=== PATIENT | female | born 1935 | race Caucasian/White ===

== ENCOUNTER 2016-08-20 14:12 | Outpatient (CLI) | payer OTHER ==
[~2016-08-20] VITALS: Ht 154.9 cm; Wt 81.4 kg
[2016-08-20 14:16] VITALS: BP 157/67; PULSE 79; RESP 18; Ht 154.9 cm; Wt 81.4 kg
[2016-08-20] MEDS ORDERED: SYN112 PO (14:37)
[2016-08-20] MEDS ORDERED: SIMV10TA PO (14:37)
[2016-08-20] MEDS ORDERED: HYD25 PO (14:37)
[2016-08-20] MEDS ORDERED: LOSA100T7 PO (14:37)
[2016-08-20] MEDS ORDERED: LANT3I SC (14:37)
[2016-08-20] MEDS ORDERED: ASPI-664 PO (14:38)
--- NOTE | 2016-08-20 14:56 | PN ---
Date/Time of Note Date/Time of Note DATE: 08/20/16 TIME: 14:52 Outpatient Progress Note Chief Complaint Sepsis/pyelonephritis/diabetes/ASHD/hypertension/CHF/hypothyroidism HPI Sepsis/patient was recently admitted with sepsis, patient was in the hospital, patient was started on IV antibiotic, patient stable, no fever or chill, Pyelonephritis/no fever or chill, no blood in the urine, patient had Escherichia coli bacteremia, Diabetes/no polydipsia polyuria hypoglycemia, patient blood sugar slightly elevated, patient was not taking regular insulin 3 times a day, ASHD/no chest pain or PND orthopnea, patient had non-ST [place], CHF/patient has diastolic dysfunction, no PND orthopnea or ankle edema, Hypothyroidism/no puffiness of ice, no constipation, on medication, Review of Systems Const: [No Fever, no chills, no Wt. loss, no Fatigue, normal appetite, no diaphoresis.] Eyes: [No pain, no discharge, no redness, no visual change, no foreign body.] ENT: [No pain, no bleeding, no congestion, no sore throat, no dysphagia, no discharge or rhinitis.] Lymph: [No adenopathy, no tender nodes, no lymphedema.] Resp: [No SOB, no cough, no sputum, no wheezing, no chest pain.] CV: [No chest pain, no palpitaions, no VARGAS, no PND, no edema.] GI: [Normal appetite, no pain, no nausea, no vomiting, no diarrhea, no blood, no constipation.] : [No frequency, no urgency, no dysuria, no hematuria, no flank pain, no discharge, no bleeding.] Musc: [No bone/joint pain, no back pain, no neck pain, no knee pain, no restricted ROM.] Skin: [No rash, no skin lesions, no erythema, no laceration, no bruising, no pruritus.] Neuro: [No KAPLAN, no dizziness, no syncope, no seizure, no focal-weakness.] Endo: [No polyuria, no polydypsia, no dry-skin, no temp-intolerance.] Psych: [No hallucinations, no depression, no anxiety, no suicidal ideation.] Ext: [No edema, no pain, no ulcer, no weakness.] Physical Exam Vital Signs Date Time Temp Pulse Resp B/P Pulse Ox O2 Delivery O2 Flow Rate FiO2 08/20/16 14:16 98.1 79 18 157/67 97 Room Air General Appearance: A [81] year-old [female] [who appears well-developed, well- nourished, in no acute distress.] HEENT: [Head normocephalic, atraumatic. Pupils equal, round, reactive to light and accommodate. Sclerae are no jaundice. Nasal turbinates pink without erythema or nasal discharge. Mucous membranes pink and moist without lesions. Oropharynx clear without any exudate or discharge.] NECK: [Supple. Trachea midline, No thyromegaly, No cervical lymphadenopathy, No mass, No carotid bruits, No JVD, Carotid pulses 2+ bilaterally.] PULMONARY: [Clear to auscultaion bilaterally, No retractions, Chest expansion symmetric bilaterally, no rales, no ronchi, no dulness on percussion.] CARDIAC: [Normal SI and S2, Regular rate and rythm, no murmur, gallop, or rub.] GASTROINTESTINAL: [Abdomen is soft, non-tender, Non Rigid, No distention, Positive bowel sounds x4 quadrants, Liver normal.] SKIN: [Warm, dry, no rash, no bruise, no echmosis.] EXTREMITIES: [Bilateral lower extremities normal, no edema, no phlabitus, pulse palpable, no contracture.] MUSCULOSKELETAL: [Spine Normal, Non-tender, Normal range of motion, No swelling , no deformity, no clubbing, or cyanosis, the patient has no edema to bilateral lower extremities, dorsalis pedis pulses palpable bilaterally.] NEUROLOGIC: [The patient is awake, alert, oriented, responding to yes/no questions appropriately, moving all extremities, cranial nerve intact, normal strenght, normal power, normal coordination, normal gait.] Allergies Coded Allergies: No Known Drug Allergies (Verified Allergy, Unknown, 08/20/16) [facility] Sepsis/bacteremia/pyelonephritis/Escherichia coli bacteremia/non-ST [place]/ASHD/AK I /diabetes/hypertension/chronic diastolic dysfunction/hypothyroidism Social Hx No smoking or drinking, Family Hx Noncontributory Assessment/Plan Impression Sepsis/pyelonephritis/diabetes/ASHD/hypertension/diastolic dysfunction/ hypothyroidism Plan Continue all medication, patient has been getting IV antibiotic, patient remains afebrile, Patient encouraged to follow with the primary care physician, Patient encouraged to follow the diet, patient blood sugar is 200+ all the time, Patient encouraged to take Humalog 10 units before breakfast, monitor blood sugar closely, discussion about hypoglycemia, and potential problem, patient education done, Medications Home Meds Reported Medications Aspirin (Low Dose Aspirin) 81 Mg Tablet.dr, 81 MG PO DAILY, #30 TAB 08/20/16 Simvastatin* (Zocor*) 10 Mg Tablet, 10 MG PO QHS, #30 TAB 08/20/16 Losartan Potassium* (Losartan Potassium*) 100 Mg Tablet, 100 MG PO DAILY, TAB 08/20/16 Hydrochlorothiazide* (Hydrochlorothiazide*) 25 Mg Tab, 25 MG PO DAILY, #30 TAB 08/20/16 Insulin Glargine* (Lantus*) 100 Unit/Ml Soln, 36 UNIT SC QHS, #1 VIAL 08/20/16 Levothyroxine Sodium* (Levothyroxine Sodium*) 112 Mcg Tablet, 112 MCG PO BEFORE BREAKFAST, #30 TAB 08/20/16 MORAIMA CABRERA MD Aug 20, 2016 14:56
== END 2016-08-20 16:25 | disposition home or self-care (01) ==
LOC: DCC 14:12
PROVIDERS: ATTEND Internal Medicine
DX: Z09 Encounter for follow-up examination after completed treatment for conditions other than malignant neoplasm (principal); Z87.440 Personal history of urinary (tract) infections; E11.9 Type 2 diabetes mellitus without complications; I11.0 Hypertensive heart disease with heart failure; I50.30 Unspecified diastolic (congestive) heart failure; E03.9 Hypothyroidism, unspecified; I25.2 Old myocardial infarction; Z79.4 Long term (current) use of insulin
CPT/HCPCS: G0463

== ENCOUNTER 2016-09-03 13:52 | Outpatient (CLI) | payer OTHER ==
[~2016-09-03] VITALS: Ht 154.9 cm; Wt 81.8 kg
[~2016-09-03 13:52] MED LIST: ASPI-664 PO; HYD25 PO; LANT3I SC; LOSA100T7 PO; SIMV10TA PO; SYN112 PO
[2016-09-03 13:58] VITALS: BP 200/74; PULSE 70; RESP 20; Ht 154.9 cm; Wt 81.8 kg
[2016-09-03] MEDS ORDERED: INSU100C SQ (14:28)
--- NOTE | 2016-09-03 15:01 | PN ---
Date/Time of Note Date/Time of Note DATE: 09/03/16 TIME: 14:57 Outpatient Progress Note Chief Complaint Pyelonephritis/diabetes/ASHD/hypertension/hypothyroidism HPI Pyelonephritis/no fever chill, no frequency urgency or burning, no back pain, improved significantly, no symptom at present, Diabetes/no polydipsia polyuria hypoglycemia, patient blood sugar around 12:00 is slightly elevated, other blood sugars are fair, ASHD patient denies any chest pain no PND orthopnea or ankle edema, Hypertension/no headache or dizziness or lightheadedness, today's blood pressure slightly elevated, patient has not taken medication yet, Hypothyroidism/no puffiness of eyes, no constipation, Review of Systems Const: No Fever, no chills, no Wt. loss, no Fatigue, normal appetite, no diaphoresis. Eyes: No pain, no discharge, no redness, no visual change, no foreign body. ENT: No pain, no bleeding, no congestion, no sore throat, no dysphagia, no discharge or rhinitis. Lymph: No adenopathy, no tender nodes, no lymphedema. Resp: No SOB, no cough, no sputum, no wheezing, no chest pain. CV: No chest pain, no palpitaions, no VARGAS, no PND, no edema. GI: Normal appetite, no pain, no nausea, no vomiting, no diarrhea, no blood, no constipation. : No frequency, no urgency, no dysuria, no hematuria, no flank pain, no discharge, no bleeding. Musc: No bone/joint pain, no back pain, no neck pain, no knee pain, no restricted ROM. Skin: No rash, no skin lesions, no erythema, no laceration, no bruising, no pruritus. Neuro: No KAPLAN, no dizziness, no syncope, no seizure, no focal-weakness. Endo: No polyuria, no polydypsia, no dry-skin, no temp-intolerance. Psych: No hallucinations, no depression, no anxiety, no suicidal ideation. Ext: No edema, no pain, no ulcer, no weakness. Physical Exam Vital Signs Date Time Temp Pulse Resp B/P Pulse Ox O2 Delivery O2 Flow Rate FiO2 09/03/16 13:58 98.2 70 20 200/74 96 Room Air General Appearance: A 81 year-old female who appears well-developed, well- nourished, in no acute distress. HEENT: Head normocephalic, atraumatic. Pupils equal, round, reactive to light and accommodate. Sclerae are no jaundice. Nasal turbinates pink without erythema or nasal discharge. Mucous membranes pink and moist without lesions. Oropharynx clear without any exudate or discharge. NECK: Supple. Trachea midline, No thyromegaly, No cervical lymphadenopathy, No mass, No carotid bruits, No JVD, Carotid pulses 2+ bilaterally. PULMONARY: Clear to auscultaion bilaterally, No retractions, Chest expansion symmetric bilaterally, no rales, no ronchi, no dulness on percussion. CARDIAC: Normal SI and S2, Regular rate and rythm, no murmur, gallop, or rub. GASTROINTESTINAL: Abdomen is soft, non-tender, Non Rigid, No distention, Positive bowel sounds x4 quadrants, Liver normal. SKIN: Warm, dry, no rash, no bruise, no echmosis. EXTREMITIES: Bilateral lower extremities normal, no edema, no phlabitus, pulse palpable, no contracture. MUSCULOSKELETAL: Spine Normal, Non-tender, Normal range of motion, No swelling, no deformity, no clubbing, or cyanosis, the patient has no edema to bilateral lower extremities, dorsalis pedis pulses palpable bilaterally. NEUROLOGIC: The patient is awake, alert, oriented, responding to yes/no questions appropriately, moving all extremities, cranial nerve intact, normal strenght, normal power, normal coordination, normal gait. Allergies Coded Allergies: No Known Drug Allergies (Verified Allergy, Unknown, 08/20/16) PMH Diabetes/hypertension/high hypothyroidism history of CHF, history of's sepsis,/ pyelonephritis/ Social Hx No change, Family Hx No change, Assessment/Plan Impression Pyelonephritis resolved/diabetes/ASHD/hypertension/hypothyroidism Plan Patient has all the medication, except insulin, will refill insulin, patient to go home and take medication, if blood pressure remains elevated to call us, may need to add another medication, Control of blood sugar, control the calorie, increase activity, discussed with the patient, Patient to follow with the primary care physician, Patient encouraged to see the physician in couple of weeks, and sooner if the blood pressure remains elevated, Medications Home Meds Reported Medications Insulin Lispro (Humalog) 100 Unit/1 Ml Cartridge, 10 UNIT SQ AC BREAKFAST 09/03/16 Aspirin (Low Dose Aspirin) 81 Mg Tablet.dr, 81 MG PO DAILY, #30 TAB 08/20/16 Simvastatin* (Zocor*) 10 Mg Tablet, 10 MG PO QHS, #30 TAB 08/20/16 Losartan Potassium* (Losartan Potassium*) 100 Mg Tablet, 100 MG PO DAILY, TAB 08/20/16 Hydrochlorothiazide* (Hydrochlorothiazide*) 25 Mg Tab, 25 MG PO DAILY, #30 TAB 08/20/16 Insulin Glargine* (Lantus*) 100 Unit/Ml Soln, 36 UNIT SC QHS, #1 VIAL 08/20/16 Levothyroxine Sodium* (Levothyroxine Sodium*) 112 Mcg Tablet, 112 MCG PO BEFORE BREAKFAST, #30 TAB 08/20/16 MORAIMA CABRERA MD September 03, 2016 15:01
== END 2016-09-03 16:31 | disposition home or self-care (01) ==
LOC: DCC 13:52
PROVIDERS: ATTEND Internal Medicine
DX: N12 Tubulo-interstitial nephritis, not specified as acute or chronic (principal); I10 Essential (primary) hypertension; E11.9 Type 2 diabetes mellitus without complications; E03.9 Hypothyroidism, unspecified; I25.10 Atherosclerotic heart disease of native coronary artery without angina pectoris
CPT/HCPCS: 82962; G0463

== ENCOUNTER 2016-12-03 05:33 | Day surgery (SDC) | payer OTHER ==
[2016-12-03] VITALS (7 sets, daily range): BP systolic 93–130; BP diastolic 34–65; PULSE 62–88; RESP 14–20; Ht 152.4 cm; Wt 82.3 kg
[~2016-12-03] VITALS: Ht 152.4 cm; Wt 82.3 kg
[~2016-12-03 05:33] MED LIST changes: +INSU100C SQ
[2016-12-03] MEDS ORDERED: CYCLOPENTOLATE/PHENYLEPH 2 ML OPH RIGHT EYE SCH (06:00)
[2016-12-03] MEDS ORDERED: TROPICAMIDE 1% 2 ML OPH RIGHT EYE SCH (06:00)
[2016-12-03] MEDS ORDERED: CIPROFLOXACIN 0.3% 2.5 ML OPH RIGHT EYE SCH (06:00)
[2016-12-03] MEDS ORDERED: DICLOFENAC 0.1% 2.5 ML OPH RIGHT EYE SCH (06:00)
[2016-12-03] MEDS ORDERED: DEXAMETHASONE 4 MG/ML 1 ML INJ ONE (06:26)
[2016-12-03] MEDS ORDERED: HYALURONATE/CHONDROITIN 1ML OPH INJ ONE (06:26)
[2016-12-03] MEDS ORDERED: EPINEPHrine 1 MG INJ ONE (06:26)
[2016-12-03] MEDS ORDERED: LIDOCAINE 4% (MPF) 5 ML INJ ONE (06:26)
[2016-12-03] MEDS ORDERED: CARBACHOL 0.01% 1.5 ML OPH INJ ONE (06:26)
[2016-12-03] MEDS ORDERED: GENTAMICIN 80 MG INJ ONE (06:26)
[2016-12-03] MEDS ORDERED: CEFAZOLIN 1 GM INJ ONE (06:26)
[2016-12-03] MEDS ORDERED: ATOR20TA38 PO (06:56)
[2016-12-03] MEDS ORDERED: AMLO-147 PO (06:56)
[2016-12-03] MEDS ORDERED: FENTAnyl 50 MCG/ML VIAL ONE (06:58)
[2016-12-03] MEDS ORDERED: PROPOFOL 20 ML ONE (06:58)
[2016-12-03] MEDS ORDERED: LIDOCAINE 1% (MDV) 20 ML INJ ONE (06:59)
[2016-12-03] MEDS ORDERED: ASPI-664 PO (07:00)
[2016-12-03] MEDS ORDERED: DEXAMETHASONE 4 MG/ML 1 ML INJ INJ ONE (07:07)
[2016-12-03] MEDS ORDERED: HYALURONATE/CHONDROITIN 1ML OPH INJ IO ONE (07:07)
[2016-12-03] MEDS ORDERED: CEFAZOLIN 1 GM INJ INJ ONE (07:07)
[2016-12-03] MEDS ORDERED: CARBACHOL 0.01% 1.5 ML OPH INJ RIGHT EYE ONE (07:07)
--- NOTE | 2016-12-03 07:58 | OPR ---
Date/Time of Note Date/Time of Note DATE: 12/03/16 TIME: 07:57 Operative Report Preoperative Diagnosis cataract od Postoperative Diagnosis same Operation/Procedure Performed cataract surgery od Surgeon: NITISH HAMM MD Anesthesia Type: MAC Estimated Blood Loss: none Transfusion Required: no Specimen: none Complications: no NITISH HAMM MD Dec 03, 2016 07:58
--- NOTE | 2016-12-03 08:45 | OPR ---
DATE OF OPERATION: 12/03/2016 PREOPERATIVE DIAGNOSIS: Cataract, right eye. POSTOPERATIVE DIAGNOSIS: Cataract, right eye. OPERATION PERFORMED: Cataract extraction with lens implant, right eye. SURGEON: Luis Nash MD ANESTHESIOLOGIST: Yohannes Haskins CRNA ANESTHESIA: Local standby. PROCEDURE: The patient was brought to the operating room and placed on the table with an IV in place and the patient attached to an rotoprinter. Oxygen was given via face mask. After some intravenous sedation was administered, local anesthesia was given using Xylocaine 2% with epinephrine, mixed with Marcaine 0.5%. This was given in a lid block and retrobulbar injection. The patient was then prepped and draped in the usual sterile manner. A wire lid speculum was inserted between the lids of the right eye. A Superblade was used to enter the anterior chamber at the corneoscleral limbus at the 10:30 o'clock position. A separate incision was made using a 3.0-mm keratome which entered the corneoscleral junction at the 12 o'clock position. Through this 3- mm opening, an irrigating cystotome was introduced into the anterior chamber. The chamber was filled with Viscoat and an anterior capsulotomy was performed. Balanced salt solution was then used for hydrodissection of the lens. A phacoemulsification handpiece was then brought into the field and introduced into the anterior chamber. The lens nucleus was emulsified using a deep groove and cracking the nucleus into quadrants. Following this, each quadrant was aspirated and emulsified at the pupillary margin. After this was completed, the irrigation/aspiration handpiece was brought to the field, introduced into the posterior chamber, and the lens cortical material was removed. When this was completed, additional Viscoat was injected into the anterior and posterior chambers. The 3-mm opening had its internal lips enlarged, and then the posterior chamber intraocular lens measuring 22.5 diopters ([employer], model LI61AO) was then injected into the posterior chamber using the lens injector system. After the leading haptic was introduced into the capsular bag and the lens optic was present in the center of the eye, the injector was removed and the trailing haptic was grasped with non-toothed forceps and introduced into the capsular fold superiorly. A Sinskey hook was then used to rotate the intraocular lens so that the lips were oriented in the horizontal meridian. One 10-0 nylon suture was placed across the wound. Prior to tying, the irrigation/aspiration handpiece was reintroduced into the anterior chamber to remove the Viscoat. Miochol was instilled to constrict the pupil, and then the 10-0 nylon suture was tied. The ends were cut short and then the knot was buried. Then, 0.5 mL of dexamethasone and 0.5 mL of Ancef were injected into the sub-Tenon space in the inferior fornix. Ciloxan drops were then placed on the surface of the eye. The speculum was removed and a patch was applied. The patient then left the operating room in satisfactory condition. Dictated By: Luis Nash MD /jenny/jena /Document#: [id number]
== END 2016-12-03 08:54 | disposition home or self-care (01) ==
LOC: SDS 05:33
PROVIDERS: ATTEND Ophthalmology
DX: H26.9 Unspecified cataract (principal); I10 Essential (primary) hypertension; E11.9 Type 2 diabetes mellitus without complications
CPT/HCPCS: 66984; 82962; J0171; J0690; J1100; J1580; J3010; V2632; Z7512; Z7610

== ENCOUNTER 2017-02-25 05:15 | Day surgery (SDC) | payer OTHER ==
[2017-02-25] VITALS (7 sets, daily range): BP systolic 101–161; BP diastolic 60–79; PULSE 67–83; RESP 16–18; Ht 160 cm; Wt 81.3 kg
[~2017-02-25] VITALS: Ht 160 cm; Wt 81.3 kg
[~2017-02-25 05:15] MED LIST changes: +AMLO-147 PO; +ATOR20TA38 PO; -HYD25 PO; +HYDR25TA6 PO; +LEVO112T57 PO; -SIMV10TA PO; -SYN112 PO
[2017-02-25] MEDS ORDERED: CYCLOPENTOLATE/PHENYLEPH 2 ML OPH OPER SCH (06:00)
[2017-02-25] MEDS ORDERED: MOXIFLOXACIN 0.5% 3 ML OPH OPER SCH (06:00)
[2017-02-25] MEDS ORDERED: BROMFENAC SODIUM 1.7 ML OPH DROP OPER SCH (06:00)
[2017-02-25] MEDS ORDERED: TROPICAMIDE 1% 2 ML OPH OPER SCH (06:00)
[2017-02-25] MEDS ORDERED: SOD CHLORIDE 0.9% 1,000 ML IV SCH (06:00)
--- NOTE | 2017-02-25 06:23 | PREOPHP ---
DATE OF ADMISSION: 02/25/2017 HISTORY OF PRESENT ILLNESS: This 81-year-old patient is admitted for elective cataract surgery of t he left eye. The patient has had progressive deterioration of vision in both eyes and 3 months ago underwent cataract surgery of the right eye with good visual result. The patient denies any other p rior history of eye disease or injury. 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 MEDICATIONS INCLUDE: 1. Insulin. 2. Losartan. 3. Simvastatin. 4. Levothyroxine. 5. Aspirin was discontinued 1 week prior to surgery. ALLERGIES: THERE ARE NO KNOWN ALLERGIES. PHYSICAL EXAMINATION: Visual acuity with best correction is 20/40 in the right eye and 20/80 in the left eye. Slit lamp examination reveals a posterior chamber intraocular lens in appropriate positi on in the right eye and a nuclear sclerotic and posterior subcapsular cataract in the left eye. Rica lanation tonometry is 12 mmHg. Examination of the retina appears to be within normal limits without evidence of diabetic retinopathy. DIAGNOSIS: Cataract, left eye. PLAN: Cataract extraction with lens implant, left eye. The risks and alternatives to the surgery h ave been discussed with the patient as well as the hope for improvement of visual acuity leading to greater ability to perform activities of daily living. The patient understands this and agrees to liana quiñonez with surgery. Dictated By: NITISH MCDOWELL/BLAKE Conf#: [id number] DID#: [id number]
[2017-02-25] MEDS ORDERED: CARBACHOL 0.01% 1.5 ML OPH INJ ONE (06:41)
[2017-02-25] MEDS ORDERED: EPINEPHrine 1 MG INJ ONE (06:41)
[2017-02-25] MEDS ORDERED: DEXAMETHASONE 4 MG/ML 1 ML INJ ONE (06:41)
[2017-02-25] MEDS ORDERED: LIDOCAINE 4% (MPF) 5 ML INJ ONE (06:41)
[2017-02-25] MEDS ORDERED: FLUT9.9S NASAL (06:41)
[2017-02-25] MEDS ORDERED: GENTAMICIN 80 MG INJ ONE (06:41)
[2017-02-25] MEDS ORDERED: CEFAZOLIN 1 GM INJ ONE (06:41)
[2017-02-25] MEDS ORDERED: CEFAZOLIN 1 GM INJ INJ ONE (06:59)
[2017-02-25] MEDS ORDERED: DEXAMETHASONE 4 MG/ML 1 ML INJ INJ ONE (06:59)
[2017-02-25] MEDS ORDERED: CARBACHOL 0.01% 1.5 ML OPH INJ IO ONE (06:59)
[2017-02-25] MEDS ORDERED: EPHEDrine SULFATE 50 MG/5 ML SYG IV PRN (07:30)
[2017-02-25] MEDS ORDERED: DIPHENHYDRAMINE 50 MG INJ IV PRN (07:30)
[2017-02-25] MEDS ORDERED: METOCLOPRAMIDE 10 MG INJ IV PRN (07:30)
[2017-02-25] MEDS ORDERED: ONDANSETRON 4 MG INJ IV PRN (07:30)
[2017-02-25] MEDS ORDERED: MEPERIDINE 25 MG INJ IV PRN (07:30)
[2017-02-25] MEDS ORDERED: LABETALOL HCL 20MG INJ IV PRN (07:30)
[2017-02-25] MEDS ORDERED: OXYCODONE/ACETAMINOPHEN (5/325) TAB PO PRN ×2 (07:30)
[2017-02-25] MEDS ORDERED: FENTAnyl 50 MCG/ML VIAL IV PRN ×3 (07:30)
[2017-02-25] MEDS ORDERED: hydrALAzine 20 MG INJ IV PRN (07:30)
[2017-02-25] MEDS ORDERED: MIDAZOLAM 1 MG/ML 2 ML INJ IV PRN (07:30)
[2017-02-25] MEDS ORDERED: PROPOFOL 20 ML ONE (07:31)
--- NOTE | 2017-02-25 08:05 | SIPON ---
Date/Time of Note Date/Time of Note DATE: 02/25/17 TIME: 08:03 Operative Report Preoperative Diagnosis cataract os Postoperative Diagnosis same Operation/Procedure Performed cataract surgery os Surgeon see signature line litigation assistant none Anesthesia: MAC Estimated blood loss: none Transfusion Required none Specimen none Grafts/Implants posterior chamber lens implant Complications none NITISH HAMM MD Feb 25, 2017 08:05
--- NOTE | 2017-02-25 08:05 | SIPON ---
Date/Time of Note Date/Time of Note DATE: 02/25/17 TIME: 08:03 Operative Report Preoperative Diagnosis cataract os Postoperative Diagnosis same Operation/Procedure Performed cataract surgery os Surgeon see signature line engineer first assistant none Anesthesia: MAC Estimated blood loss: none Transfusion Required none Specimen none Grafts/Implants posterior chamber lens implant Complications none NITISH HAMM MD Feb 25, 2017 08:05
--- NOTE | 2017-02-25 08:05 | SIPON ---
Date/Time of Note Date/Time of Note DATE: 02/25/17 TIME: 08:03 Operative Report Preoperative Diagnosis cataract os Postoperative Diagnosis same Operation/Procedure Performed cataract surgery os Surgeon see signature line geriatric assistant none Anesthesia: MAC Estimated blood loss: none Transfusion Required none Specimen none Grafts/Implants posterior chamber lens implant Complications none NITISH HAMM MD Feb 25, 2017 08:05
--- NOTE | 2017-02-25 09:36 | OPR ---
DATE OF OPERATION: 02/25/2017 PREOPERATIVE DIAGNOSIS: Cataract, left eye. POSTOPERATIVE DIAGNOSIS: Cataract, left eye. OPERATION PERFORMED: Cataract extraction with lens implant, left eye. SURGEON: Nitish Nash MD. ANESTHESIA: Dr. Miramontes. OPERATION: Phacoemulsification with posterior chamber intraocular lens implant, left eye. PROCEDURE: The patient was brought to the operating room and placed on the table with an IV in plac e and the patient attached to an satellite project site monitor. Oxygen was given via face mask. After some intravenous sedation was administered, local anesthesia was given using Xylocaine 2% with epinephrine, mixed with Marcaine 0.5%. This was given in a lid block and retrobulbar injection. The patient was then prepped and draped in the usual sterile manner. A wire lid speculum was inserted between the lids of the left eye. A Superblade was used to enter th e anterior chamber at the corneoscleral limbus at the 10:30 o'clock position. A separate incision wa s made using a 3.0-mm keratome which entered the corneoscleral junction at the 12 o'clock position. Through this 3-mm opening, an irrigating cystotome was introduced into the anterior chamber. The rosmery mber was filled with Viscoat and an anterior capsulotomy was performed. Balanced salt solution was t hen used for hydrodissection of the lens. A phacoemulsification handpiece was then brought into the field and introduced into the anterior chamber. The lens nucleus was emulsified using a deep groove and cracking the nucleus into quadrants. Following this, each quadrant was aspirated and emulsified at the pupillary margin. After this was completed, the irrigation/aspiration handpiece was brought to the field, introduced i nto the posterior chamber, and the lens cortical material was removed. When this was completed, gabriel tional Viscoat was injected into the anterior and posterior chambers. The 3-mm opening had its internal lips enlarged, and then the posterior chamber intraocular lens daja suring 22.0 diopters ([employer] model LI61A0) was then injected into the posterior chamber using the lens injector system. After the leading haptic was introduced into the capsular b ag and the lens optic was present in the center of the eye, the injector was removed and the trailin g haptic was grasped with non-toothed forceps and introduced into the capsular fold superiorly. A Si nskey hook was then used to rotate the intraocular lens so that the lips were oriented in the horizo ntal meridian. One 10-0 nylon suture was placed across the wound. Prior to tying, the irrigation/aspiration handpiece was reintroduced into the anterior chamber to re move the Provisc. Miochol was instilled to constrict the pupil, and then the 10-0 nylon suture was t ied. The ends were cut short and then the knot was buried. Then, 0.5 mL of dexamethasone and 0.5 mL of Ancef were injected into the sub-Tenon space in the infe rior fornix. Ciloxan drops were then placed on the surface of the eye. The speculum was removed and a patch was applied. The patient then left the operating room in satisfactory condition. Dictated By: NITISH MCDOWELL/BLAKE Conf#: [id number] DID#: [id number]
== END 2017-02-25 09:20 | disposition home or self-care (01) ==
LOC: SDS 05:15
PROVIDERS: ATTEND Ophthalmology
DX: H25.12 Age-related nuclear cataract, left eye (principal); I10 Essential (primary) hypertension; E11.9 Type 2 diabetes mellitus without complications; E78.5 Hyperlipidemia, unspecified
CPT/HCPCS: 66984; 82962; J0171; J0690; J1100; J1580; V2632; Z7512; Z7610